=== PATIENT | female | born 1980 | race Caucasian/White ===

== ENCOUNTER 2023-07-21 00:21 | Emergency (ER) | payer SELFPAY ==
[2023-07-21] MEDS ORDERED: Ondansetron PF 4 MG/2 ML Vial ONE (00:28)
[2023-07-21] MEDS ORDERED: diphenhydrAMINE 50 MG/ML VIAL ONE ×2 (00:28→03:34)
[2023-07-21] MEDS ORDERED: Ipratropium/Albuterol 3 ML NEB ONE (00:29)
[2023-07-21] MEDS ORDERED: methylPREDNISolone Sod Succ/PF 125 MG/2 ML VIAL ONE (00:29)
[2023-07-21] MEDS ORDERED: Famotidine/PF 20 mg/2ml Vial ONE (00:29)
[2023-07-21] MEDS ORDERED: EPINEPHrine 1 MG/ML AMP ONE (00:34)
[2023-07-21] MEDS ORDERED: Acetaminophen 500 MG TAB ONE (01:07)
[2023-07-21] MEDS ORDERED: Morphine 4 MG/ML VIAL ONE (04:10)
[2023-07-21] MEDS ORDERED: fentaNYL 50 mcg/mL 1 mL Vial ONE (04:16)
[2023-07-21] MEDS ORDERED: Albuterol 2.5 MG/0.5 ML NEB ONE ×2 (05:03→05:04)
== END 2023-07-21 06:35 | disposition home or self-care (01) ==
LOC: ERS 00:21
DX: T78.2XXA Anaphylactic shock, unspecified, initial encounter (principal); T78.40XA Allergy, unspecified, initial encounter; F17.210 Nicotine dependence, cigarettes, uncomplicated
CPT/HCPCS: 94640; 96361; 96372; 96374; 96375; 96376; J0171; J1200; J2270; J2405; J2930; J3010; J7611; J7620; S0028

== ENCOUNTER 2023-10-14 20:58 | Inpatient (IN) | payer BC, SELFPAY ==
[2023-10-14] MEDS ORDERED: Adenosine 6 mg (2 mL) VIAL ONE (21:07)
[2023-10-14] MEDS ORDERED: fentaNYL 50 mcg/mL 1 mL Vial ONE (21:17)
[2023-10-14] MEDS ORDERED: Ondansetron PF 4 MG/2 ML Vial ONE (21:20)
[2023-10-14 21:58] LABS: #Monocytes 0.6 thou/uL (0.11-0.59); #Neutrophils 6.8 thou/uL (1.40-6.50); %Basophils 0.3 % (0.0-1.0); %Lymphocytes 19.9 % (21.0-51.0); %Monocytes 6.6 % (0.0-10.0); %Neutrophils 72.5 % (42.0-75.0); Hematocrit 36.6 % (36.0-47.0); Hemoglobin 12.7 g/dL (12.0-16.0); Mean Corpuscular HGB CONC 34.7 g/dL (32.0-36.0); Mean Corpuscular Volume 97.9 fl (78.0-98.0); Mean Platelet Volume 8.9 fL (7.4-10.4); Platelet Count 363 10x3/uL (130-400); RBC Distribution Width 14.3 % (11.5-14.5); Red Blood Cell (RBC) Count 3.74 mill/uL (4.20-5.40); White Blood Cell (WBC) Count 9.3 10x3/uL (4.8-10.8)
[2023-10-14 22:05] LABS: BHCG - Serum Negative (NEGATIVE); Pregs Control Background? CLEAR/WHITE (CLR/WHITE); Pregs Control Bar Appear? YES (CONTROL BAR)
[2023-10-14 22:19] LABS: ALT (SGPT) 55 U/L (8-55); AST (SGOT) 31 U/L (5-34); Albumin 4.4 g/dL (3.5-5.0); Alkaline Phosphatase 72 U/L (40-110); Anion Gap 16 mmol/L (10-20); BUN (Urea Nitrogen) 18 mg/dL (7.0-18.7); Bilirubin, Total 0.6 mg/dL (0.2-1.2); Calc. Creatinine Clearance 0 mL/min (70-130); Calcium 9.9 mg/dL (7.8-10.44); Carbon Dioxide 23 mmol/L (22-29); Chloride 101 mmol/L (98-107); Estimated GFR 58; Globulin 3.2 g/dL (2.4-3.5); Glucose 103 mg/dL (70-105); Potassium 3.6 mmol/L (3.5-5.1); Protein, Total 7.6 g/dL (6.0-8.3); Sodium 136 mmol/L (136-145)
[2023-10-14 22:24] LABS: Troponin I Less than 0.010 ng/mL (< 0.028)
[2023-10-14] MEDS ORDERED: Acetaminophen 500 MG TAB ONE (22:32)
[2023-10-14] MEDS ORDERED: Metoprolol Tartrate 5 MG (5 mL) VIAL ONE (22:53)
[2023-10-14] MEDS ORDERED: Clopidogrel Bisulfate 75 MG TAB ONE (22:53)
[2023-10-14] MEDS ORDERED: Ondansetron PF 4 MG/2 ML Vial IVP PRN (23:30)
[2023-10-14] MEDS ORDERED: Acetaminophen 325 MG TAB PO PRN (23:30)
[2023-10-14] MEDS ORDERED: Ondansetron ODT 4 MG TAB SL PRN (23:30)
[2023-10-14 23:53] LABS: Free T4 (Free Thyroxine) 1.03 ng/dL (0.70-1.48)
[2023-10-15] MEDS ORDERED: Acetaminophen 325 MG TAB PO PRN (00:39)
[2023-10-15] MEDS ORDERED: Calcium Carbonate 500 MG ChewTAB PO PRN (00:39)
[2023-10-15] MEDS ORDERED: Ondansetron ODT 4 MG TAB PO PRN (00:39)
[2023-10-15] MEDS ORDERED: Senokot S 8.6-50 MG TAB PO PRN (00:39)
[2023-10-15] MEDS ORDERED: Ondansetron PF 4 MG/2 ML Vial IVP PRN (00:39)
[2023-10-15] MEDS ORDERED: Nicotine 14 MG PATCH TD PRN (00:40)
[2023-10-15 01:00] VITALS: BMI 54.8
[2023-10-15 04:47] LABS: #Basophils 0.1 thou/uL (0.0-0.2); #Neutrophils 6.9 thou/uL (1.40-6.50); %Basophils 0.5 % (0.0-1.0); %Lymphocytes 25.8 % (21.0-51.0); %Monocytes 8.9 % (0.0-10.0); %Neutrophils 64.1 % (42.0-75.0); Hematocrit 34.9 % (36.0-47.0); Hemoglobin 11.6 g/dL (12.0-16.0); Mean Corpuscular HGB CONC 33.2 g/dL (32.0-36.0); Mean Corpuscular Hemoglobin 33.4 pg (27.0-31.0); Mean Corpuscular Volume 100.6 fl (78.0-98.0); Mean Platelet Volume 9.1 fL (7.4-10.4); Platelet Count 374 10x3/uL (130-400); RBC Distribution Width 14.4 % (11.5-14.5); Red Blood Cell (RBC) Count 3.47 mill/uL (4.20-5.40); White Blood Cell (WBC) Count 10.7 10x3/uL (4.8-10.8)
[2023-10-15 05:11] LABS: Anion Gap 14 mmol/L (10-20); BUN (Urea Nitrogen) 18 mg/dL (7.0-18.7); Calc. Creatinine Clearance 138 mL/min (70-130); Carbon Dioxide 26 mmol/L (22-29); Chloride 102 mmol/L (98-107); Potassium 3.4 mmol/L (3.5-5.1); Sodium 139 mmol/L (136-145)
[2023-10-15 05:12] LABS: Calcium 9.6 mg/dL (7.8-10.44); Estimated GFR 62; Glucose 121 mg/dL (70-105)
[2023-10-15 05:17] LABS: Troponin I Less than 0.010 ng/mL (< 0.028)
[2023-10-15] MEDS: Famotidine 20 MG TAB PO SCH ×2 (08:30→20:29)
[2023-10-15] MEDS ORDERED: Albuterol 200 PUFF (6.7GM INHALER) INH PRN (09:01)
[2023-10-15] MEDS ORDERED: Potassium Chloride 20 MEQ TAB PO SCH (09:15)
[2023-10-15 09:53] LABS: Magnesium 1.8 mg/dL (1.6-2.6)
[2023-10-15] MEDS ORDERED: traMADol HCl 50 MG TAB PO SCH (10:30)
[2023-10-15] MEDS: Gabapentin 300 MG CAP PO SCH ×2 (15:32→20:28)
[2023-10-15] MEDS: Methocarbamol 500 MG TAB PO SCH ×2 (15:33→20:29)
[2023-10-15] MEDS: traMADol HCl 50 MG TAB PO PRN (20:31)
[2023-10-16 04:56] LABS: Anion Gap 15 mmol/L (10-20); BUN (Urea Nitrogen) 18 mg/dL (7.0-18.7); Calc. Creatinine Clearance 161 mL/min (70-130); Calcium 9.2 mg/dL (7.8-10.44); Carbon Dioxide 22 mmol/L (22-29); Chloride 99 mmol/L (98-107); Estimated GFR 75; Glucose 100 mg/dL (70-105); Potassium 3.4 mmol/L (3.5-5.1); Sodium 133 mmol/L (136-145)
[2023-10-16] MEDS ORDERED: Levothyroxine Sodium 125 MCG TAB PO SCH (06:00)
[2023-10-16] MEDS: traMADol HCl 50 MG TAB PO PRN (06:09)
[2023-10-16] MEDS ORDERED: predniSONE 20 MG TAB PO SCH (08:00)
[2023-10-16] MEDS ORDERED: Potassium Chloride 20 MEQ TAB PO SCH ×2 (08:45→17:00)
[2023-10-16] MEDS ORDERED: Loratadine 10 MG TAB PO SCH (09:00)
[2023-10-16] MEDS ORDERED: Montelukast Sodium 10 mg Tablet PO SCH (09:00)
[2023-10-16] MEDS ORDERED: Triamterene/Hydrochlorothiazide 37.5 mg/25 mg Tablet PO SCH (09:00)
[2023-10-16] MEDS: Famotidine 20 MG TAB PO SCH (09:29)
[2023-10-16] MEDS: Methocarbamol 500 MG TAB PO SCH ×2 (09:30→14:35)
[2023-10-16] MEDS: Gabapentin 300 MG CAP PO SCH ×2 (09:30→14:33)
[2023-10-16] MEDS ORDERED: HYDROcodone/Acetaminophen 5/325 mg Tablet PO PRN (11:26)
[2023-10-16 12:47] VITALS: BP 126/74; TEMP 98.6
== END 2023-10-16 16:45 | disposition home or self-care (01) | DRG 309 ==
LOC: ERS 20:58 → 2NO 23:33 → OBSVTOIN 10-15 14:04
PROVIDERS: ADMIT Student in an Organized Health Care Education/Training Program; ATTEND Family Medicine
PROC: 3E033XZ Introduction of Vasopressor into Peripheral Vein, Percutaneous Approach (ICD-10-PCS; principal; 2023-10-15)
DX: I47.10 Supraventricular tachycardia, unspecified (principal); Z68.43 Body mass index [BMI] 50.0-59.9, adult; E06.3 Autoimmune thyroiditis; K31.84 Gastroparesis; F17.210 Nicotine dependence, cigarettes, uncomplicated; E87.6 Hypokalemia; I10 Essential (primary) hypertension; J45.909 Unspecified asthma, uncomplicated; E66.9 Obesity, unspecified; Z88.7 Allergy status to serum and vaccine; Z91.010 Allergy to peanuts; Z91.013 Allergy to seafood; Z90.49 Acquired absence of other specified parts of digestive tract
CPT/HCPCS: 36415; 71045; 80048; 80053; 83735; 84439; 84443; 84481; 84484; 84703; 85025; 85379; 93005; 93306; 96374; 96375; G0378; J0153; J2405; J3010; J7512; Q0162